=== PATIENT | male | born 1950 | race Caucasian/White ===

== ENCOUNTER → 2016-10-11 | Outpatient (CLI) | payer MEDICARE, BC ==
[~2016-10-11] MED LIST: CRESTOR 10MG10 MG PO; HYZAAR 50-12.1 UDTAB PO; LISINOPRIL/HCTZ1 TA2 PO; NORCO 325 MG-51 TAB PO; OMNICEF 300MG300 MG PO; ZOCOR 40MG40 MG PO
== END ==
LOC: COL.RAD 07:29
DX: I71.4 Abdominal aortic aneurysm, without rupture (principal)

== ENCOUNTER 2020-01-23 00:14 | Emergency (ER) | payer MEDICARE, BC ==
[~2020-01-23] VITALS: Ht 182.9 cm; Wt 113.6 kg
[2020-01-23] MEDS ORDERED: PREDNISONE20 MG PO (00:30)
[2020-01-23 02:01] VITALS: BP 123/75; PULSE 81; TEMP 97.9
== END 2020-01-23 01:58 | disposition home or self-care (01) ==
LOC: COL.ER 00:14
DX: T78.40XA Allergy, unspecified, initial encounter (principal)
CPT/HCPCS: J2930; J7030